=== PATIENT | female | born 1960 | race Caucasian/White ===

== ENCOUNTER 2016-12-16 06:09 | Inpatient (IN) | payer OTHER ==
[~2016-12-16 06:09] MED LIST: ACETAMINOPHEN 325 MG TAB PO ONE; DEXAMETHASONE 4 MG/ML VIAL IVP ONE; FAMOTIDINE 20 MG TAB PO ONE; ROPIVACAINE 0.2% 80 MG, EPINEPHrine 0.2 MG in BAG 0 ML IU ONE; VANCOMYCIN PHARMACY TO DOSE MISC ONE
[2016-12-16] MEDS ORDERED: LIDOCAINE 1% 2 ML INJ ID PRN (06:25)
[2016-12-16] MEDS ORDERED: LR 1,000 ML IV ONE (06:25)
[2016-12-16] MEDS ORDERED: ceFAZolin 1 GM/5 ML SYR ONE (06:54)
[2016-12-16] MEDS ORDERED: VANCOMYCIN HCL/NORMAL SALINE 250 ML IV ONE ×2 (07:00→20:00)
[2016-12-16] MEDS ORDERED: MIDAZOLAM 2 MG/2 ML VIAL IVP ONE (07:06)
--- NOTE | 2016-12-16 07:08 | PDANEPAE ---
ANE History of Present Illness 56 yo F w OA here for R TKA ANE Past Medical History - Cardiovascular History Hx Hypertension: No Hx Arrhythmias: No Hx Chest Pain: No Hx Coronary Artery / Peripheral Vascular Disease: No Hx CHF / Valvular Disease: No Hx Palpitations: No - Pulmonary History Hx COPD: No Hx Asthma/Reactive Airway Disease: No Hx Recent Upper Respiratory Infection: No Hx Oxygen in Use at Home: No Hx Sleep Apnea: No Sleep Apnea Screening Result - Last Documented: Negative Pulmonary History Comment: EXERCISE- INDUCED ASTHMA, NO RECENT FLARE UP - Neurologic History Hx Cerebrovascular Accident: No Hx Seizures: Yes Hx Dementia: No Neurologic History Comment: POSSIBLE SEIZURE, HAS NEVER BEEN PUT ON MEDICATIONS. LAST ONE 4 MONTHS AGO - Endocrine History Hx Diabetes: No - Renal History Hx Renal Disorders: No - Liver History Hx Hepatic Disorders: No - Neurological & Psychiatric Hx Hx Neurological and Psychiatric Disorders: No - Cancer History Hx Cancer: No - Congenital Disorder History Hx Congenital Disorders: No - GI History Hx Gastrointestinal Disorders: Yes Gastrointestinal History Comment: CONSTIPATION WITH NARCOTICS - Other Health History Other Health History: WEARS READING GLASSES - Chronic Pain History Chronic Pain: Yes (RIGHT KNEE PAIN) - Surgical History Prior Surgeries: RIGHT KNEE SURGERY. COLLAR BONE REPAIR. BILATERAL TRIGGER THUMB SURGERY. ARTHROSCOPIC KNEE SURGERIES ANE Review of Systems - Exercise capacity METS (RN): 4 METS ANE Patient History - Allergies Allergies/Adverse Reactions: Cephalosporins Allergy (Verified 11/22/16 14:32) Dyspnea NSAIDS (Non-Steroidal Anti-Inflamma Allergy (Verified 11/22/16 14:32) Rash pistachio nut Allergy (Verified 11/22/16 14:33) Diarrhea - Home Medications Home medications: home medication list seen and reviewed Home Medications: Flonase Allergy Relief 11/22/16 [Last Taken 12/09/16] Herbals/Supplements -Info Only 11/22/16 [Last Taken 12/02/16] PREMARIN 11/22/16 [Last Taken 12/09/16] - NPO status NPO Status: no food or drink >8 hours NPO Since - Liquids (Date): 12/15/16 NPO Since - Liquids (Time): 23:55 NPO Since - Solids (Date): 12/15/16 NPO Since - Solids (Time): 21:30 - Anes Hx Anes Hx: no prior problems - Smoking Hx Smoking Status: Never smoked - Alcohol Use Alcohol Use: Rarely - Family Anes Hx Family Anes Hx: none Family Hx Anesthesia Complications: NONE ANE Labs/Vital Signs - Vital Signs Blood Pressure: 122/88 Heart Rate: 75 Respiratory Rate: 12 O2 Sat (%): 94 Height: 167.01 cm Weight: 72.575 kg ANE Physical Exam - Airway Neck exam: FROM Mallampati Score: Class 1 Mouth exam: normal dental/mouth exam - Pulmonary Pulmonary: no respiratory distress, clear to auscultation - Cardiovascular Cardiovascular: regular rate and rhythym, no murmur, rub, or gallop - ASA Status ASA Status: II ANE Anesthesia Plan Anesthesia Plan: GA with mask, spinal Regional Anesthesia: adductor canal FNB
[2016-12-16] MEDS ORDERED: PROPOFOL/EMULSION 500 MG/50 ML BOTTLE IV ONE ×2 (07:09→08:40)
--- NOTE | 2016-12-16 07:12 | PDHPUP ---
History & Physical Update H&P update statement: This history and physical update is based on an assessment of the patient which was completed after admission or registration (within 24 hours), but prior to the surgery/procedure.
[2016-12-16] MEDS ORDERED: BACITRACIN 50,000 UNITS/10 ML SYR IRR ONE (07:51)
[2016-12-16] MEDS ORDERED: POLYMYXIN B SULFATE 500,000 UNIT/10 ML SYR IRR ONE (07:51)
[2016-12-16] MEDS: CALCIUM CHLORIDE 1 GM/10 ML INJ ONE ×2 (08:02→09:25)
[2016-12-16] MEDS: THROMBIN (BOVINE) 5,000 UNIT VIAL TP ONE ×2 (08:04→09:25)
[2016-12-16] MEDS ORDERED: epHEDrine SULFATE 10 MG/ML SYR ONE (08:33)
[2016-12-16] MEDS ORDERED: clonIDINE 1 MG/10 ML VIAL EP ONE (09:04)
[2016-12-16] MEDS ORDERED: ROPIVACAINE HCL 150 MG/30 ML INJ ONE (09:04)
[2016-12-16] MEDS ORDERED: PROMETHAZINE HCL 25 MG/ML INJ IVP PRN ×2 (09:51→10:04)
[2016-12-16] MEDS ORDERED: ONDANSETRON 4 MG/2 ML VIAL IVP PRN (09:51)
[2016-12-16] MEDS ORDERED: NALOXONE HCL 0.4 MG/ML INJ IVP PRN (09:51)
[2016-12-16] MEDS ORDERED: HYDROmorphONE/DILAUDID 1 MG/ML SYR IVP PRN ×2 (09:51)
[2016-12-16] MEDS ORDERED: fentaNYL 100 MCG/2 ML INJ IVP PRN ×2 (09:51)
[2016-12-16] MEDS ORDERED: BISACODYL 10 MG SUPP PR PRN (10:04)
[2016-12-16] MEDS ORDERED: TEMAZEPAM 15 MG CAP PO PRN (10:04)
[2016-12-16] MEDS ORDERED: CYCLOBENZAPRINE 10 MG TAB PO PRN (10:04)
[2016-12-16] MEDS ORDERED: MAGNESIUM HYDROXIDE 30 ML UDCUP PO PRN (10:04)
[2016-12-16] MEDS ORDERED: LACTULOSE 20 GM/30 ML UDCUP PO PRN (10:04)
[2016-12-16] MEDS ORDERED: DIPHENOXYLATE/ATROPINE LOMOTIL 1 TAB PO PRN (10:04)
[2016-12-16] MEDS ORDERED: PHARMACY PAIN CONSULT 1 EA MISC PRN (10:04)
[2016-12-16] MEDS ORDERED: POLYETHYLENE GLYCOL 3350 17 GM PKT PO PRN (10:04)
[2016-12-16] MEDS ORDERED: traMADol 50 MG TAB PO PRN (10:04)
[2016-12-16] MEDS ORDERED: PROMETHAZINE HCL 25 MG SUPPR PR PRN (10:04)
--- NOTE | 2016-12-16 10:12 | POSTOPPROG ---
Post Op Note Date of Operation: 12/16/16 Surgeon: Gi Quintanilla [facility] Asst: KAYLYN Capellan Anesthesia: IV Sedation, Spinal Pre-op Diagnosis: DJD Right knee Post-op Diagnosis: Same Procedure: Right TKA Inf/Abcess present in the surg proc area at time of surgery?: No Depth: Deep Incisional (Fascial) EBL: Minimal
--- NOTE | 2016-12-16 11:28 | GOP ---
[f rep st] OPERATIVE REPORT DATE OF OPERATION: 12/16/2016 SURGEON: Gi Quintanilla MD SUPERVISOR TRANSCRIBING OPERATORS: Keaton Hartman, NAIF ANESTHESIA: Spinal with sedation. PREOPERATIVE DIAGNOSIS: Severe osteoarthritis, right knee. POSTOPERATIVE DIAGNOSIS: Severe osteoarthritis, right knee. PROCEDURE PERFORMED: Right total knee arthroplasty. FINDINGS: Preoperative x-rays of the patient's right knee demonstrated severe medial compartment ar throsis with moderate patellofemoral and lateral compartment arthrosis. At the time of surgery this finding was confirmed. There was complete loss of the articular cartilage in the medial compartmen t. There was some bony erosion of the medial tibial plateau. There was grade 3 and 4 chondromalaci a of the patella. The patient also had moderate chondromalacia of the lateral compartment. At the time of surgery, a [employer] Journey II total knee arthroplasty was implanted. A size 5 cruc iate-stabilized, Oxinium-coated femoral component was cemented into place and a size 5 tibial base p late was also utilized. A 9 mm thick cross-linked polyethylene insert was placed in the metal backi ng of the tibia and a 32 mm round patellar component was utilized on the patella. Following implant ation of the components, the knee was taken through range of motion and achieved full extension and 135 degrees of flexion. The patella tracked well in the trochlear groove. The knee was stable in e xtension and 30 degrees of flexion. ESTIMATED BLOOD LOSS: Less than 100 cc. DESCRIPTION OF PROCEDURE: The patient was taken the operating room, placed in supine position on th e operating table. Following induction of adequate spinal and general anesthesia, the knee and leg were prepped and draped in the usual sterile manner. The patient received 1 g of IV vancomycin. Th e leg was elevated and exsanguinated and the tourniquet inflated to 275 mmHg. The DeMayo leg hassan was used throughout the procedure for improved visualization. A midline incision was made extendin g from 2 fingerbreadths above the superior pole of the patella distally to the tibial tubercle. Inc ision was carried down through the subcutaneous tissue to the retinaculum of the knee. A medial par apatellar arthrotomy was then performed. The patella was everted laterally. The thickness of the p atella was measured and then a 9 mm cut was taken from the posterior aspect of the patella. The cut surface was protected with a metal plate and the patella was placed in the lateral gutter. Our att ention was then turned to the distal femur. The knee was flexed up to 90 degrees of flexion and the n a distal femoral drill hole was made. Intramedullary referencing was utilized for the distal femo ral cut. A +2 cut was taken from the distal femur. This was done due to the patient's pre-existing flexion contracture. The femur was then sized. A size 5 component was felt to be the best fit. T he size 5 cutting block was placed on the distal femur and the anterior, posterior, and chamfer cuts were made. The size 5 trial was placed on the distal femur and then the notch was cleared with the reamer, followed by the box osteotome. The femoral component was removed. Our attention was turne d to the tibia. Again, intramedullary referencing was utilized. A drill hole was placed in the pro ximal tibia and then the intramedullary guide was inserted and positioned and pinned. The tibial cu t was taken, taking care to protect the posterior structures. The knee was still quite tight, so an additional 4 mm was taken from the tibia so that the size 9 lollipop would fit both in the flexion and extension gaps. The tibia was then sized and the size 5 tibial component was also noted to be t he best fit. It was pinned into place and then the keel punch was utilized. A trial reduction was performed with all the components and the patient achieved excellent range of motion. The patella w as prepared. It was drilled. All the trial components were removed and the bony surfaces were thor oughly irrigated and dried. The cement was mixed. The tibial component was cemented first, followe d by the femur and the patella. Excess cement was removed from around the edges of the components u sing curettes and a [place] elevator. The knee was brought into extension to compress the femur and t ibial components. Once the cement was hard, the knee was flexed up and the trial insert was taken o ut of the tibial backing and the 9 mm thick cross-linked polyethylene was inserted. The wound was t hen thoroughly irrigated out. The joint cocktail was then injected in the posterior capsule and the extensor mechanism in the retinaculum of the knee was closed using #2 FiberWire in an interrupted f ashion. The subcutaneous tissue was closed using 2-0 Vicryl and the skin was closed using rima. PRP was used in the deep portions of the wound to enhance wound healing. Sterile dressings were ap plied. The patient tolerated the procedure well. There were no complications. Estimated blood los s minimal. Final sponge and needle counts were correct. The patient was transported to the recover y room in good condition. /[id number]/MODL
[2016-12-16] MEDS: ACETAMINOPHEN 325 MG TAB PO SCH ×3 (13:04→23:04)
[2016-12-16] MEDS: oxyCODONE IR 5 MG TAB PO PRN ×5 (13:10→23:04)
[2016-12-16] MEDS: LR 1,000 ML IV SCH (15:41)
[2016-12-16] MEDS: SENNOSIDES/DOCUSATE SODIUM TAB PO SCH (20:05)
[2016-12-16] MEDS: FAMOTIDINE 20 MG TAB PO SCH (20:06)
[2016-12-17] MEDS: ONDANSETRON DISINTEGRATING 4 MG TAB PO PRN (03:17)
[2016-12-17] MEDS: oxyCODONE IR 5 MG TAB PO PRN ×6 (03:18→20:40)
[2016-12-17] MEDS ORDERED: NS BOLUS 1000 ML (Wide open) IV ONE (04:00)
[2016-12-17] MEDS: ACETAMINOPHEN 325 MG TAB PO SCH ×4 (05:06→23:38)
[2016-12-17 05:22] LABS: HEMATOCRIT 28.5 % (38.0-47.0); HEMOGLOBIN 9.4 g/dL (12.6-16.3)
[2016-12-17] MEDS: ONDANSETRON 4 MG/2 ML VIAL IVP PRN ×2 (06:14→20:59)
[2016-12-17] MEDS: FAMOTIDINE 20 MG TAB PO SCH ×2 (06:16→21:09)
[2016-12-17] MEDS: SENNOSIDES/DOCUSATE SODIUM TAB PO SCH ×2 (07:44→21:08)
--- NOTE | 2016-12-17 16:04 | SOAPPROG ---
SOAP Progress Note Assessment/Plan: Assessment: S/P right TKA with mild hypotension Plan: 12/17/16 16:01 12/17/16 16:01 12/17/16 16:04 IV fluids Home tomorrow Subjective: C/O right knee pain Objective: Vital Signs Temp Pulse Resp BP Pulse Ox 37.4 C 78 16 113/53 L 98 12/17/16 15:01 12/17/16 15:01 12/17/16 15:01 12/17/16 15:01 12/17/16 15:01 Laboratory Results 12/17/16 04:48 12/16/16 12/17/16 12/18/16 05:59 05:59 05:59 Intake Total 4476 Output Total 3460 1400 Balance 1016 -1400 dressing dry and intact N/V intact calves nontender - Pending Discharge Pending Discharge Within 24 Hours: Yes Pending Discharge Date: 12/18/16 Pending Discharge Time: 11:00 ICD10 Worksheet Patient Problems: Problems Problem Status Onset Osteoarthritis, localized, knee Acute - ICD10 Problem Qualifiers (1) Osteoarthritis, localized, knee
--- NOTE | 2016-12-17 16:11 | PDIAF ---
- Diagnosis Diagnosis: knee osteoarthritis Code Status: Full Code - Medication Management Discharge Medications: Medications to Continue on Transfer Herbals/Supplements -Info Only 1 ea PO DAILY 11/22/16 [Last Taken 12/02/16] Albuterol [Proventil Inhaler HFA (*)] 1 - 2 puffs IH DAILY PRN 12/16/16 [Last Taken Unknown] C/E/Zn/Cu/OM3/DHA/EPA/LUT/ZEAX [Preservision Areds 2 Softgel] 1 each PO DAILY [Last Taken Unknown] Cholecalciferol Vit D3 [Vitamin D3 2000 units tab (OTC)] 2,000 units PO DAILY [Last Taken Unknown] Multivitamins [Multivitamin (*)] 1 each PO DAILY 12/16/16 [Last Taken Unknown] Discharge Medications: Refer to the Discharge Home Medication list for PRN reason. PICC Care - Routine: N/A - Orders Services needed: Home Care, Physical Therapy, Occupational Therapy Home Care Face to Face: I certify that this patient was under my care and that I had the required [id number] encounter meeting the encounter requirements on the discharge day. My findings support the fact that the patient is homebound as defined in CMS Chapter 7 Medicare Benefits Manual 30.1.1, The condition of the patient is such that there exists a normal inability to leave home and consequently, leaving home would require a considerable and taxing effort. Diet Recommendation: no restrictions on diet Diet Texture: Regular Texture Diet Sutures/Fay Site: right knee - Follow Up Care Current Providers and Referrals: Gulshan Araujo MD [Primary Care Provider] - Gi Quintanilla MD [Medical Doctor] -
[2016-12-17] MEDS: LR 1,000 ML IV SCH (20:40)
[2016-12-18] MEDS: oxyCODONE IR 5 MG TAB PO PRN ×4 (02:04→16:36)
[2016-12-18 05:27] LABS: HEMATOCRIT 28.5 % (38.0-47.0); HEMOGLOBIN 9.3 g/dL (12.6-16.3)
[2016-12-18] MEDS: ACETAMINOPHEN 325 MG TAB PO SCH ×2 (05:46→11:43)
[2016-12-18] MEDS: SENNOSIDES/DOCUSATE SODIUM TAB PO SCH (08:38)
[2016-12-18] MEDS: FAMOTIDINE 20 MG TAB PO SCH (08:38)
[2016-12-18] MEDS: ONDANSETRON DISINTEGRATING 4 MG TAB PO PRN ×2 (09:12→13:03)
[2016-12-18 14:54] VITALS: BP 115/66; PULSE 90; RESP 16; TEMP 99.6; O2SAT 93
== END 2016-12-18 17:04 | disposition home or self-care (01) | DRG 470 ==
LOC: FSGY 06:09 → F3N 11:00
PROVIDERS: ADMIT Orthopaedic Surgery; ATTEND Orthopaedic Surgery
PROC: 0SRC0J9 Replacement of Right Knee Joint with Synthetic Substitute, Cemented, Open Approach (ICD-10-PCS; principal; 2016-12-16 07:15)
DX: M17.11 Unilateral primary osteoarthritis, right knee (principal); J45.990 Exercise induced bronchospasm
CPT/HCPCS: 97116-GP; 97161-GP; 97165-GO; 97530-GO; 97530-GP; 97535-GO; C1713; J0171; J0735; J1100; J2250; J2405; J2704; J2795; J3370